=== PATIENT | female | born 1985 | race Caucasian/White ===

== ENCOUNTER → 2017-09-14 | Outpatient (CLI) | payer OTHER | LOC: FIMAGING 09:02 | PROVIDERS: ATTEND Obstetrics & Gynecology | DX: O09.811 Supervision of pregnancy resulting from assisted reproductive technology, first trimester (principal); O34.591 Maternal care for other abnormalities of gravid uterus, first trimester; Z3A.12 12 weeks gestation of pregnancy ==

== ENCOUNTER → 2017-10-09 | Outpatient (CLI) | payer OTHER | LOC: FIMAGING 12:52 | PROVIDERS: ATTEND Obstetrics & Gynecology | DX: O09.812 Supervision of pregnancy resulting from assisted reproductive technology, second trimester (principal); O34.592 Maternal care for other abnormalities of gravid uterus, second trimester; Q51.4 Unicornate uterus; Z3A.16 16 weeks gestation of pregnancy ==

== ENCOUNTER → 2017-10-23 | Outpatient (CLI) | payer OTHER | LOC: FIMAGING 12:50 | PROVIDERS: ATTEND Obstetrics & Gynecology | DX: O34.02 Maternal care for unspecified congenital malformation of uterus, second trimester (principal); Z3A.18 18 weeks gestation of pregnancy; O09.812 Supervision of pregnancy resulting from assisted reproductive technology, second trimester; O44.42 Low lying placenta NOS or without hemorrhage, second trimester ==

== ENCOUNTER → 2017-11-07 | Outpatient (CLI) | payer OTHER | LOC: FIMAGING 07:18 | PROVIDERS: ATTEND Obstetrics & Gynecology | DX: O09.812 Supervision of pregnancy resulting from assisted reproductive technology, second trimester (principal); O35.1XX1 Maternal care for (suspected) chromosomal abnormality in fetus, fetus 1; O44.02 Complete placenta previa NOS or without hemorrhage, second trimester; Q51.4 Unicornate uterus; Z3A.20 20 weeks gestation of pregnancy ==

== ENCOUNTER → 2017-11-21 | Outpatient (CLI) | payer OTHER | LOC: FIMAGING 12:00 | PROVIDERS: ATTEND Obstetrics & Gynecology | DX: O34.592 Maternal care for other abnormalities of gravid uterus, second trimester (principal); O09.812 Supervision of pregnancy resulting from assisted reproductive technology, second trimester; O35.8XX0 Maternal care for other (suspected) fetal abnormality and damage, not applicable or unspecified; O44.42 Low lying placenta NOS or without hemorrhage, second trimester; Z3A.22 22 weeks gestation of pregnancy ==

== ENCOUNTER → 2018-02-13 | Outpatient (CLI) | payer OTHER | LOC: FIMAGING 08:00 | PROVIDERS: ATTEND Obstetrics & Gynecology | DX: O35.8XX0 Maternal care for other (suspected) fetal abnormality and damage, not applicable or unspecified (principal); O34.03 Maternal care for unspecified congenital malformation of uterus, third trimester; Z3A.35 35 weeks gestation of pregnancy ==